=== PATIENT | female | born 1950 | race Caucasian/White ===

== ENCOUNTER → 2016-11-22 10:51 | Outpatient (CLI) | payer MEDICARE | END | disposition home or self-care (01) | LOC: D.MAMMO 08:15 | DX: Z12.31 Encounter for screening mammogram for malignant neoplasm of breast (principal) ==

== ENCOUNTER 2018-03-08 09:15 | Emergency (ER) | payer MEDICARE ==
[~2018-03-08] VITALS: Ht 160 cm; Wt 113.6 kg
[2018-03-08 09:23] VITALS: Ht 160 cm; Wt 113.6 kg
[2018-03-08] MEDS ORDERED: K-TAB10 MEQ PO (09:24)
[2018-03-08] MEDS ORDERED: MOBIC7.5 MG PO (09:25)
[2018-03-08] MEDS ORDERED: ZESTRIL40 MG PO (09:25)
[2018-03-08] MEDS ORDERED: PROZAC10 MG PO (09:25)
[2018-03-08] MEDS ORDERED: NORVASC10 MG PO (09:25)
[2018-03-08] MEDS ORDERED: FUROSEMIDE40 MG PO (09:26)
[2018-03-08] MEDS ORDERED: CYCLOBENZAPRINE10 MG PO (10:32)
[2018-03-08] MEDS ORDERED: ACETAMINOPHEN500 M1 PO (10:32)
[2018-03-08] MEDS ORDERED: MEDROL DOSE PACK4 MG PO (10:32)
[2018-03-08 11:04] VITALS: BP 138/76
== END 2018-03-08 11:05 | disposition home or self-care (01) ==
LOC: D.ER 09:15
DX: M25.561 Pain in right knee (principal); M17.11 Unilateral primary osteoarthritis, right knee; I10 Essential (primary) hypertension

== ENCOUNTER → 2018-03-27 17:17 | Outpatient (CLI) | payer MEDICARE ==
[2018-03-08 09:23] VITALS: BMI 44.3
[~2018-03-27 17:17] MED LIST: ACETAMINOPHEN500 M1 PO; CYCLOBENZAPRINE10 MG PO; FUROSEMIDE40 MG PO; K-TAB10 MEQ PO; MEDROL DOSE PACK4 MG PO; MOBIC7.5 MG PO; NORVASC10 MG PO; PROZAC10 MG PO; ZESTRIL40 MG PO
== END | disposition home or self-care (01) ==
LOC: D.LABREF 17:17
DX: M17.11 Unilateral primary osteoarthritis, right knee (principal); Z11.8 Encounter for screening for other infectious and parasitic diseases

== ENCOUNTER 2018-04-18 11:47 | Inpatient (IN) | payer MEDICARE ==
[~2018-04-18] VITALS: Ht 160 cm; Wt 115.0 kg
--- NOTE | ~2018-04-18 | OP ---
PATIENT NAME: GARRET KHANNA MEDICAL RECORD: [id number] :46 LOCATION:[facility].2222 ADMISSION DATE:04/29/18 SURGEON: PATRICK LANG DO DATE OF OPERATION: 04/29/2018 PROCEDURE PERFORMED: Right total knee arthroplasty. PREOPERATIVE DIAGNOSIS: Severe end-stage right knee osteoarthritis. POSTOPERATIVE DIAGNOSIS: Severe end-stage right knee osteoarthritis. INDICATIONS: Ms. Khanna is a 67-year-old female who presented to my office with right knee pain. She had x-rays done in the ER, it was very painful. She had a large loose body in the anterior portion of the knee just posterior to the patellar tendon. She also had severe arthritis. Her x-rays were nonweightbearing and indicated even showed that she was gctu-bf-[id number] even not bearing weight. She tried all conservative measures and tired of dealing with the pain. It was affecting her activities of daily living. Once that was established, I informed her that she tried everything besides surgery, we could do a total knee replacement, but there were risks with it. She is slightly overweight and there was increased risk for infection. There is also risk for bleeding, damage to nerves and vessels, need for further surgery, fracture. She is okay with all those risks, even blood clots and , and she consented to the procedure. SURGEON: Patrick Lang DO DESCRIPTION OF PROCEDURE: The patient received a block by anesthesia in the preoperative area and taken to the operative suite, laid in the supine position. I was assisted by Akhil Negrete, Advanced Nurse Practitioner. He helped me close and held retractors throughout the procedure. This could not have been performed without his assistance. Once the patient was intubated and sedated, she was given 2 grams of Ancef and 80 mg of gentamicin preoperatively. The right lower extremity was prepped and draped in sterile fashion. Timeout was performed, everyone was in agreement of correct side, site and patient. The patient received a gram of TXA prior to incision. The incision was then marked out of the anterior knee and then covered with Ioban. A #10 blade scalpel was then used to go down to the knee capsule itself and it was cleaned off. A fresh 10 blade was used to do a medial parapatellar approach. Any bleeding was coagulated with the Aquamantys throughout the procedure. The patella was then everted. Some of the fat pad was removed and that large loose body was removed as well. The patella was everted and milled down to fit the prosthesis. The knee was then flexed up. The femoral canal was entered and the distal femur was cut through the distal femur guide. The tibia was then cut as well as the guide was put in and the menisci were removed and any other loose bodies were removed at that time. The posterior capsule as well as the lateral and medial side of the knee was coagulated with the Aquamantys at that time to catch any bleeders. Once that was done, the extension block was attempted to be put in and was tight medially. A medial release was done on the MCL, superficial and deep fibers. Once that was performed, the extension block fit very well and the knee was flexed and femur was measured to be 62.5. A 4-in-1 cutting block was placed on the femur and this was done with 3 degrees of external rotation. This was then cut and after an darline wing was placed to ensure there was no notching on the anterior femur. The bone was removed from the cuts and then a tibial was floated in, the knee was ranged, and the rotation was marked. After that was OPERATIVE REPORT [id number] GARRET KHANNA done, the patella was drilled and so were the lug holes for the femur. The trial on the femur was removed and had been placed and the tibia was measured to be 71. This was put in and placed in a long stem tibia with cruciate tibia was put in 71, cruciate tibia with an 80 fin stem was drilled and punched. Then, cement was then mixed and placed on the component and in the tibia. This was impacted in place. Excess cement was removed and then the femur was placed and impacted into place. A 10 poly was placed in between and the patient was placed in extension and the cement was placed in the patella after it was cleaned with curette and irrigation and then the patellar implant was put in the 3 peg holes and a patellar squeezer was put in place and held until the cement dried. Once cement dried, the excess cement was removed prior to that. Once the cement dried, the knee was ranged and put at 12 and a 14 poly in, 14 poly fit very well. There was good medial and lateral stability in flexion and extension and then a 12 E-poly anterior stabilized and the implant was placed. The locking mechanism was then put in. This knee was then thoroughly irrigated and A Surgicel beads as well as tobramycin and vancomycin powder placed into the capsule and the capsule was closed with #2 Ethibond in jhnazo-im-gbehv fashion. The capsule was then irrigated and tobramycin and vancomycin powder placed on it and then the skin was closed with 2-0 Vicryl in an interrupted fashion and a ZipLine was placed on the Adaptic, 4 x 4s, ABD, Webril, Shaji wrap, and a NASRIN hose stocking was placed up to the knee for dressing. The patient was awakened and taken to recovery in stable condition. Blood loss was approximately 200 mL. COMPLICATIONS: None. TRANSINT:[id number] Voice Confirmation ID: [id number] DOCUMENT ID: [id number] PATRICK LANG DO CC: KIMMY GARCES MD [id number] DICTATION DATE: 04/29/18 1314 CONSULTING NETWORKING ENGINEER: 04/29/18 1447 ADM IN [facility] [address] [id number]
[2018-04-23 13:04] LABS: BASOPHILS 0.3 % (0-2); EOSINOPHILS 3.2 % (0-7); HEMATOCRIT 40.5 % (36.0-48.0); HEMOGLOBIN 13.4 g/dL (12-16); IMMATURE GRANULOCYTES 0.1 % (0-5); LYMPHOCYTES 28.3 % (15-50); MCH 28.5 pg (26.0-34.0); MCHC 33.1 g/dL (31.0-37.0); MEAN PLATELET VOLUME 9.7 fL (7.4-10.4); MONOCYTES 5.8 % (2-11); NEUTROPHILS 62.3 % (40-80); PLATELET COUNT 261 10x3/uL (130-400); RBC 4.71 10x6/uL (4.00-5.40); WBC 7.3 10x3/uL (4.8-10.8)
[2018-04-23 13:06] LABS: APPEARANCE CLEAR (CLEAR); BILIRUBIN NEGATIVE (NEGATIVE); COLOR YELLOW (YELLOW); GLUCOSE NEGATIVE (NEGATIVE); KETONE NEGATIVE (NEGATIVE); NITRITE NEGATIVE (NEGATIVE); PROTEIN NEGATIVE (NEGATIVE); SPECIFIC GRAVITY 1.015 (1.005-1.020); UROBILINOGEN NORMAL (NORMAL)
[2018-04-23 13:12] LABS: CALC OSMOLALITY 284 mosm/kg (275-300); CARBON DIOXIDE 27.3 mmol/L (21.0-32.0); CHLORIDE - SERUM 105 mmol/L (98-107); CREATININE - SERUM 0.6 mg/dL (0.6-1.3); GLUCOSE 109 mg/dL (74-106); POTASSIUM - SERUM 4.2 mmol/L (3.5-5.1); SODIUM 142 mmol/L (136-145); UREA NITROGEN 14 mg/dL (7-18); eGFR NON AFRICAN AMERICAN > 90 mL/min (90-120)
[2018-04-23 13:13] LABS: APTT 33.6 SECONDS (22.8-39.4); INR 0.96 (0.85-1.17); PROTIME 12.3 SECONDS (11.6-15.0)
[2018-04-29 09:00] VITALS: BP 166/73; BMI 44.9
--- NOTE | 2018-04-29 11:35 | NUR ---
PLASMA BLADE SET AT 6/8 BOVIE PAD RIGHT FLANK [id number] 09/06/2019
[2018-04-29 13:59] VITALS: BP 117/54
[2018-04-29] MEDS ORDERED: ULTRAM50 MG PO (14:20)
[2018-04-29] MEDS ORDERED: VISTARIL50 MG PO (14:20)
[2018-04-29] MEDS ORDERED: ELIQUIS2.5 MG PO (14:21)
[2018-04-29] MEDS ORDERED: DILAUDID4 MG PO (14:22)
[2018-04-29 17:24] VITALS: BP 115/57
[2018-04-29 17:46] VITALS: Ht 160 cm; Wt 115.0 kg
--- NOTE | 2018-04-29 20:00 | NUR ---
ASSESSMENT PER FLOWSHEET. DRSG TO RT KNEE C/D/I. CPM PLACED TO RT LEG. IV PATENT LEFT FOREARM OF 1/2NS AT 50CC'S/HR SITE CLEAR. POST MAT ON BED WITH ALARMS SET. SCD'S APPLIED TO BILAT. LEGS.YELLOW SAFETY MEASURES IN USE. VOIDS ON BEDPAN.
--- NOTE | 2018-04-29 21:00 | NUR ---
MEDS GIVEN PER MAR.
[2018-04-29 21:09] VITALS: BP 123/48
--- NOTE | 2018-04-29 22:05 | NUR ---
CPM OFF PLACED ON BEDPAN TO VOID.
--- NOTE | 2018-04-30 00:09 | NUR ---
EYES CLOSED RESPIRATIONS WITH EASE AND UNLABORED.
[2018-04-30 01:03] VITALS: BP 124/55
[2018-04-30 04:48] VITALS: BP 142/58
[2018-04-30 05:26] LABS: HEMATOCRIT 34.4 % (36.0-48.0); HEMOGLOBIN 11.2 g/dL (12-16); MCH 28.2 pg (26.0-34.0); MCHC 32.6 g/dL (31.0-37.0); MCV 86.6 fL (80.0-100.0); MEAN PLATELET VOLUME 9.7 fL (7.4-10.4); RBC 3.97 10x6/uL (4.00-5.40); RDW 15.1 % (11.5-14.5); WBC 13.4 10x3/uL (4.8-10.8)
--- NOTE | 2018-04-30 05:39 | NUR ---
VOIDS ON BEDPAN DENIES NEEDS RESING QUIETLY
--- NOTE | 2018-04-30 11:38 | NUR ---
PT STATED PAIN IS STILL BETWEEN 7 AND 8. PT IS YESSY MOFFETT IN CHAIR AT [facility], PT MARIELLAS CHERELLE DILAUDID AND TORADOL, WILL ADMINISTER TRAMADOL ORDERED PRN. PT TO SIT UP UNTIL AFTER LUNCH, STATED SHE FEELS LIKE SHE MA HAVE DONE TOO MUCH TOO SOON. CONTINUE WITH PLAN OF CARE
[2018-04-30 13:56] VITALS: BP 135/47
--- NOTE | 2018-04-30 16:26 | MORECARE ---
CASE MANAGEMENT DISCHARGE SUMMARY PATIENT: GARRET MACARIO SILVESTRE UNIT: [id number] ADM DATE: 04/29/18 AGE: 67 : 48 SEX: F ROOM/BED: D.2222 AUTHOR: MAUDE BLAKELY PHYSICIAN: REFERRING PHYSICIAN: KITTY LANG DO DATE OF SERVICE: 04/30/18 Discharge Plan Patient Name: GARRET MACARIO [facility] : 1950 Planned Disposition: Home Anticipated Discharge Date: Discharge Date: Expected LOS: Initial Reviewer: [email or web address] Initial Review Date: 04/30/2018 Generated: 04/30/18 5:26 pm Patient Name: GARRET MACARIO Page 35684 at 1626 All edits/amendments must be made on the electronic document DICTATION DATE: 04/30/18 1625 FOOTWEAR SALES LEADER: SANTOSH 04/30/185 RPT#: [id number] DC DATE: STATUS: ADM IN [facility] [address] [place] [address] END OF REPORT
--- NOTE | 2018-04-30 16:35 | MORECARE ---
CASE MANAGEMENT DISCHARGE SUMMARY PATIENT: GARRET MACARIO UNIT: [id number] ADM DATE: 04/29/18 AGE: 67 : 48 SEX: F ROOM/BED: D.2222 AUTHOR: ZORA,DOC PHYSICIAN: REFERRING PHYSICIAN: KITTY LANG DO DATE OF SERVICE: 04/30/18 Discharge Plan Patient Name: GARRET MACARIO Facility: [facility]:[place] : 1950 Planned Disposition: Home Anticipated Discharge Date: Discharge Date: Expected LOS: Initial Reviewer: [email or web address] Initial Review Date: 04/30/2018 Generated: 04/30/18 5:35 pm Comments DCP- Discharge Planning Updated by [email or web address]: Danielle Capps on 04/30/18 3:[address] Patient Name: GARRET MACARIO Admission Status: Elective Accout number: [id number] Admission Date: 04-29-2018 : 1950 Admission Diagnosis: Attending: KITTY LANG Current LOS: 1 Anticipated DC Date: Planned Disposition: Home Primary Insurance: [employer] ADV Discharge Planning Comments: CM met with patient to discuss discharge planning/needs, she is alone in the room. She states she has been staying at her daughter's home with her daughter and 2 adult grand children, She states she uses a cane or walker for ambulation, otherwise is independent with her ADL's. States she has already had her DME delivered (has BSC, CPM and walker in room and ice machine at the home) from [employer] (ordered from Dr. Lang's office). She states she does not think Dr. Lang had wanted her to start on her OP PT yet, but when he does she would like to use [facility]. I will check with her doctor tomorrow on when to get this started. CM will continue to follow and assist with discharge planning/needs. Automotive Electrical Fitter: Danielle Capps DCPIA - Discharge Planning Initial Assessment Updated by [email or web address]: Danielle Capps on 04/30/18 4:27 pm * Is the patient Alert and Oriented? Yes * How many steps to enter\exit or inside your home? 4/0 * PCP Dr. Luna * Pharmacy [facility] [address] * Preadmission Environment Home with Family * ADLs Partial Dependent * Partial ADLs (Assistance needed) Ambulation * Equipment Bedside Commode Cane Other Walker * Other Equipment Rollator walker CPM machine Ice machine * List name and contact numbers for known caregivers / representatives who currently or will assist patient after discharge: Ceci Mercado - DTR - [phone] * Verbal permission to speak to the caregivers and representatives has been obtained from the patient. Yes * Community resources currently utilized None * Additional services required to return to the preadmission environment? Yes * Can the patient safely return to the preadmission environment? Yes * Has this patient been hospitalized within the prior 30 days at any hospital? No Last DP export: 04/30/18 3:26 p Patient Name: GARRET MACARIO Page [id number] at 1635 All edits/amendments must be made on the electronic document DICTATION DATE: 04/30/181634 CALL CENTER DIRECTOR: SANTOSH 04/30/18 1635 RPT#: [id number] DC DATE: STATUS: ADM IN [facility] [address] [place] [address] END OF REPORT
--- NOTE | 2018-04-30 17:00 | NUR ---
PT IS RESTING IN BED WITH EYES OPEN. RESPIRATIONS ARE EVEN AND UNLABORED. SCD ON LEFT LOWER EXTREMITY. DRESSING TO RIGHT LOWER EXTREMITY IS C/D/I. PT REPORTS PAIN 7/10 BUT DENIES NEEDS AT THIS TIME. PT REPORTS THAT SHE HAS PASSED FLATUS SINCE THE PROCEDURE BUT DENIES A BM. PT DENIES PRESENCE OF N/V AT THIS TIME. BED IS IN THE LOWEST POSITION. CALL LIGHT AND BEDSIDE TABLE ARE WITHIN REACH. WILL NOTIFY NURSE OF PAIN LEVEL.
[2018-04-30 17:12] VITALS: BP 122/50
--- NOTE | 2018-04-30 18:42 | NUR ---
WHILE PLACING CPM MACHINE ON PT, WELDING MACHINE SETTER SAW A BAG OF MEDS UNDER PT LEG, ADVISED PT SHE CAAN NOT SELF MEDICATE WHILE ERE, DAUGHTER STATED SHE IS TAKING MEDS HOME WITH HER TONIGHT, NO OTHER NEEDS CONTINUE WITH PLAN OF CARE
--- NOTE | 2018-04-30 20:00 | NUR ---
ASSESSSMENT PER FLOWSHEET.DENICE WRAP DRESSING TO RT KNEE C/D/I. PATIENT PLACED IN CPM MACHINE. IV LEFT FOREARM SALINE LOCKED. DENIES NEEDS.
--- NOTE | 2018-04-30 21:00 | NUR ---
MEDS GIVEN PER MAR, UP WITH HELP AND USE OF WALKER TO BSC. VOIDS WELL.
[2018-04-30 21:07] VITALS: BP 147/53
--- NOTE | 2018-05-01 00:48 | NUR ---
C/O INCISIONAL PAIN ULTRAM TAB ONE PO GIVEN FOR PAIN CONTROL.
--- NOTE | 2018-05-01 03:00 | NUR ---
UP TO BSC VOIDS WELL ASSISTED BACK TO BED SR UP X2 CALL LIGHT WITHIN REACH.
[2018-05-01 04:00] VITALS: BP 137/47
--- NOTE | 2018-05-01 04:42 | NUR ---
AWAKE C/O PAIN INCISIONAL AREA RATES PAIN LEVEL #8 TORADOL 15MG IVPS GIVEN FOR PAIN CONTROL.
[2018-05-01 04:52] LABS: BASOPHILS 0.1 % (0-2); CALC OSMOLALITY 282 mosm/kg (275-300); CALCIUM 8.2 mg/dL (8.5-10.1); CARBON DIOXIDE 26.6 mmol/L (21.0-32.0); CHLORIDE - SERUM 105 mmol/L (98-107); CREATININE - SERUM 0.6 mg/dL (0.6-1.3); EOSINOPHILS 0.7 % (0-7); GLUCOSE 154 mg/dL (74-106); HEMATOCRIT 32.2 % (36.0-48.0); HEMOGLOBIN 10.5 g/dL (12-16); IMMATURE GRANULOCYTES 0.3 % (0-5); LYMPHOCYTES 23.9 % (15-50); MCH 27.9 pg (26.0-34.0); MCHC 32.6 g/dL (31.0-37.0); MCV 85.4 fL (80.0-100.0); MONOCYTES 9.9 % (2-11); NEUTROPHILS 65.1 % (40-80); PLATELET COUNT 198 10x3/uL (130-400); POTASSIUM - SERUM 3.6 mmol/L (3.5-5.1); RBC 3.77 10x6/uL (4.00-5.40); RDW 15.2 % (11.5-14.5); SODIUM 140 mmol/L (136-145); UREA NITROGEN 15 mg/dL (7-18); eGFR NON AFRICAN AMERICAN > 90 mL/min (90-120)
[2018-05-01 05:01] LABS: WBC 9.9 10x3/uL (4.8-10.8)
--- NOTE | 2018-05-01 06:00 | NUR ---
RESTING QUIETLY DENIES NEEDS.
[2018-05-01 08:38] VITALS: BP 140/59
--- NOTE | 2018-05-01 08:44 | NUR ---
PT SITTING UP IN BED ON CPM MACHINE. NO S/S OF ACUTE DISTRESS. CL IN PLACE.
--- NOTE | 2018-05-01 11:46 | MORECARE ---
CASE MANAGEMENT DISCHARGE SUMMARY PATIENT: GARRET MACARIO UNIT: [id number] ADM DATE: 04/29/18 AGE: 67 : 48 SEX: F ROOM/BED: D.2222 AUTHOR: ZORADOC PHYSICIAN: REFERRING PHYSICIAN: KITTY LANG DO DATE OF SERVICE: 05/01/18 Discharge Plan Patient Name: GARRET MACARIO Facility: [facility]:[place] : 1950 Planned Disposition: Home Anticipated Discharge Date: Discharge Date: Expected LOS: Initial Reviewer: [email or web address] Initial Review Date: 04/30/2018 Generated: 05/01/18 12:46 pm Comments DCP- Discharge Planning Updated by [email or web address]: Danielle Capps on 04/30/18 3:[address] Patient Name: GARRET MACARIO Admission Status: Elective Accout number: [id number] Admission Date: 04-29-2018 : 1950 Admission Diagnosis: Attending: KITTY LANG Current LOS: 1 Anticipated DC Date: Planned Disposition: Home Primary Insurance: [employer] ADV Discharge Planning Comments: CM met with patient to discuss discharge planning/needs, she is alone in the room. She states she has been staying at her daughter's home with her daughter and 2 adult grand children, She states she uses a cane or walker for ambulation, otherwise is independent with her ADL's. States she has already had her DME delivered (has BSC, CPM and walker in room and ice machine at the home) from [employer] (ordered from Dr. Lang's office). She states she does not think Dr. Lang had wanted her to start on her OP PT yet, but when he does she would like to use [facility]. I will check with her doctor tomorrow on when to get this started. CM will continue to follow and assist with discharge planning/needs. Zoology Teacher: Danielle Capps DCPIA - Discharge Planning Initial Assessment Updated by [email or web address]: Danielle Capps on 04/30/18 4:27 pm * Is the patient Alert and Oriented? Yes * How many steps to enter\exit or inside your home? 4/0 * PCP Dr. Luna * Pharmacy [facility] [address] * Preadmission Environment Home with Family * ADLs Partial Dependent * Partial ADLs (Assistance needed) Ambulation * Equipment Bedside Commode Cane Other Walker * Other Equipment Rollator walker CPM machine Ice machine * List name and contact numbers for known caregivers / representatives who currently or will assist patient after discharge: Ceci Mercado - DTR - [phone] * Verbal permission to speak to the caregivers and representatives has been obtained from the patient. Yes * Community resources currently utilized None * Additional services required to return to the preadmission environment? Yes * Can the patient safely return to the preadmission environment? Yes * Has this patient been hospitalized within the prior 30 days at any hospital? No External Providers External Provider: [facility] Next Contact Date: Service Request Date: Service Type: Resolution: Reviewer: Comments: Last DP export: 04/30/18 3:35 p Patient Name: GARRET MACARIO Page 31380 at 1146 All edits/amendments must be made on the electronic document DICTATION DATE: 05/01/18 1145 JAVA SOFTWARE ARCHITECT: SANTOSH 05/01/18 1145 RPT#: [id number] DC DATE: STATUS: ADM IN [facility] [address] [place] [address] END OF REPORT
--- NOTE | 2018-05-01 11:54 | MORECARE ---
CASE MANAGEMENT DISCHARGE SUMMARY PATIENT: GARRET MACARIO UNIT: [id number] ADM DATE: 04/29/18 AGE: 67 : 48 SEX: F ROOM/BED: D.2222 AUTHOR: ZORA,DOC PHYSICIAN: REFERRING PHYSICIAN: KITTY LANG DO DATE OF SERVICE: 05/01/18 Discharge Plan Patient Name: GARRET MACARIO Facility: [facility]:[place] : 1950 Planned Disposition: Home Anticipated Discharge Date: Discharge Date: Expected LOS: Initial Reviewer: [id number] Initial Review Date: 04/30/2018 Generated: 05/01/18 12:54 pm Comments DCP- Discharge Planning Updated by [email or web address]: Danielle Capps on 05/01/18 10:[address] Spoke with patient and she is in agreement to [facility] for PT until stronger. ADRIANO for [facility] signed. I called Mayra at [facility], they will see her Saturday and PT will start on Saturday. Patient and daughter informed. She will be staying with daughter at [address] [place] [address] and Mayra informed at [facility]. CM will continue to follow and assist with discharge planning/needs. DCP- Discharge Planning Updated by [email or web address]: Danielle Capps on 04/30/18 3:[address] Patient Name: GARRET MACARIO Admission Status: Elective Accout number: [id number] Admission Date: 04-29-2018 : 1950 Admission Diagnosis: Attending: KITTY LANG Current LOS: 1 Anticipated DC Date: Planned Disposition: Home Primary Insurance: [email or web address] ADV Discharge Planning Comments: CM met with patient to discuss discharge planning/needs, she is alone in the room. She states she has been staying at her daughter's home with her daughter and 2 adult grand children, She states she uses a cane or walker for ambulation, otherwise is independent with her ADL's. States she has already had her DME delivered (has BSC, CPM and walker in room and ice machine at the home) from [employer] (ordered from Dr. Lang's office). She states she does not think Dr. Lang had wanted her to start on her OP PT yet, but when he does she would like to use [facility]. I will check with her doctor tomorrow on when to get this started. CM will continue to follow and assist with discharge planning/needs. Stamping Machine Operator: Danielle Capps DCPIA - Discharge Planning Initial Assessment Updated by [id number]: Danielle Capps on 04/30/18 4:27 pm * Is the patient Alert and Oriented? Yes * How many steps to enter\exit or inside your home? 4/0 * PCP Dr. Luna * Pharmacy [facility] on [address] * Preadmission Environment Home with Family * ADLs Partial Dependent * Partial ADLs (Assistance needed) Ambulation * Equipment Bedside Commode Cane Other Walker * Other Equipment Rollator walker CPM machine Ice machine * List name and contact numbers for known caregivers / representatives who currently or will assist patient after discharge: Ceci Mercado - DTR - [phone] * Verbal permission to speak to the caregivers and representatives has been obtained from the patient. Yes * Community resources currently utilized None * Additional services required to return to the preadmission environment? Yes * Can the patient safely return to the preadmission environment? Yes * Has this patient been hospitalized within the prior 30 days at any hospital? No Last DP export: 05/01/18 10:46 a Patient Name: GARRET MACARIO Page 40893 at 1154 All edits/amendments must be made on the electronic document DICTATION DATE: 05/01/18 115 WEB ANALYTICS SPECIALIST: SANTOSH 05/01/18 1154 RPT#: [id number] SD DATE: STATUS: ADM IN [facility] [address] [place] [address] END OF REPORT
[2018-05-01 16:30] VITALS: BP 110/56
--- NOTE | 2018-05-01 18:20 | NUR ---
ASSISTED PT TO BR WITH RW. PT DID WELL. NO S/S OF ACUTE DISTRESS. CL IN PLACE.
--- NOTE | 2018-05-01 19:00 | NUR ---
BEDSIDE REPORT RECEIVED AND CARE OF PT ASSUMED. PT RESTING IN SUPINE POSITION. DRESSING ON RIGHT LEG CLEAN AND DRY. IV IN LEFT FA SALINE LOCKED. WILL MONITOR FOR NEEDS.
[2018-05-01 20:00] VITALS: BP 162/62
--- NOTE | 2018-05-01 21:31 | NUR ---
HS MEDICATIONS GIVEN TO INCLUDE TORADOL IVP AND VISTARIL PO FOR PAIN. WILL MONITOR FOR EFFECTIVENESS. CALL LIGHT WITHIN REACH.
[2018-05-02] VITALS: BP 146/69
--- NOTE | 2018-05-02 07:45 | NUR ---
PT LAYING IN BED, RESTING WITH EYES OPEN. CPM ON PATIENT AT THIS TIME, TO COME OFF NO LATER THEN 1015. PT IS POST-OP DAY 3 OF A RIGHT TOTAL KNEE, DRESSING TO RIGHT KNEE, CDI. RESPIRATIONS EVEN AND UNLABORED, NO S/S OF DISTRESS NOTED. BED LOW AND LOCKED, SR UP X2, CL IN EASY REACH. DENIES NEEDS. WILL CONTINUE TO MONITOR.
--- NOTE | 2018-05-02 08:54 | MORECARE ---
CASE MANAGEMENT DISCHARGE SUMMARY PATIENT: GARRET MACARIO UNIT: [id number] ADM DATE: 04/29/18 AGE: 67 : 48 SEX: F ROOM/BED: D.2222 AUTHOR: ZORA,DOC PHYSICIAN: REFERRING PHYSICIAN: KITTY LANG DO DATE OF SERVICE: 05/02/18 Discharge Plan Patient Name: GARRET MACARIO Facility: [facility]:[place] : 1950 Planned Disposition: Home Anticipated Discharge Date: Discharge Date: Expected LOS: Initial Reviewer: [email or web address] Initial Review Date: 04/30/2018 Generated: 05/02/18 9:54 am Comments DCP- Discharge Planning Updated by [email or web address]: Danielle Capps on 05/01/18 10:[address] Spoke with patient and [facility]. ADRIANO for [facility] signed. I called Mayra at [facility], they will see her Saturday and PT will start on Saturday. Patient and daughter informed. She will be staying with daughter at [address] [place] [address] and Mayra informed at [facility]. CM will continue to follow and assist with discharge planning/needs. DCP- Discharge Planning Updated by [email or web address]: Danielle Capps on 04/30/18 3:[address] Patient Name: GARRET MACARIO Admission Status: Elective Accout number: [id number] Admission Date: 04-29-2018 : 1950 Admission Diagnosis: Attending: KITTY LANG Current LOS: 1 Anticipated DC Date: Planned Disposition: Home Primary Insurance: [employer] ADV Discharge Planning Comments: CM met with patient to discuss discharge planning/needs, she is alone in the room. She states she has been staying at her daughter's home with her daughter and 2 adult grand children, She states she uses a cane or walker for ambulation, otherwise is independent with her ADL's. States she has already had her DME delivered (has BSC, CPM and walker in room and ice machine at the home) from [employer] (ordered from Dr. Lang's office). She states she does not think Dr. Lang had wanted her to start on her OP PT yet, but when he does she would like to use [facility]. I will check with her doctor tomorrow on when to get this started. CM will continue to follow and assist with discharge planning/needs. Armor Senior Sergeant: Danielle Capps DCPIA - Discharge Planning Initial Assessment Updated by [email or web address]: Danielle Capps on 04/30/18 4:27 pm * Is the patient Alert and Oriented? Yes * How many steps to enter\exit or inside your home? 4/0 * PCP Dr. Luna * Pharmacy [facility] [address] * Preadmission Environment Home with Family * ADLs Partial Dependent * Partial ADLs (Assistance needed) Ambulation * Equipment Bedside Commode Cane Other Walker * Other Equipment Rollator walker CPM machine Ice machine * List name and contact numbers for known caregivers / representatives who currently or will assist patient after discharge: Ceci Mercado - DTR - [phone] * Verbal permission to speak to the caregivers and representatives has been obtained from the patient. Yes * Community resources currently utilized None * Additional services required to return to the preadmission environment? Yes * Can the patient safely return to the preadmission environment? Yes * Has this patient been hospitalized within the prior 30 days at any hospital? No Last DP export: 05/01/18 10:54 a Patient Name: GARRET MACARIO Page 20429 at 0854 All edits/amendments must be made on the electronic document DICTATION DATE: 05/02/18853 APPLICATION CHEMIST: SANTOSH 05/02/1854 RPT#: [id number] DC DATE: STATUS: ADM IN [facility] [address] [place] [address] END OF REPORT
--- NOTE | 2018-05-02 09:09 | MORECARE ---
CASE MANAGEMENT DISCHARGE SUMMARY PATIENT: GARRET MACARIO UNIT: [id number] ADM DATE: 04/29/18 AGE: 67 : 48 SEX: F ROOM/BED: D.2222 AUTHOR: ZORA,DOC PHYSICIAN: REFERRING PHYSICIAN: KITTY LANG DO DATE OF SERVICE: 05/02/18 Discharge Plan Patient Name: GARRET MACARIO Facility: [facility]:[place] : 1950 Planned Disposition: Home Anticipated Discharge Date: Discharge Date: Expected LOS: Initial Reviewer: [email or web address] Initial Review Date: 04/30/2018 Generated: 05/02/18 10:09 am Comments DCP- Discharge Planning Updated by [email or web address]: Danielle Capps on 05/02/18 8:[address] Received order for discharge. Spoke with Mayra at [facility] and DC orders faxed, they will see tomorrow and PT will begin on Saturday, patient informed. Patient in agreement to discharge home today with home health. Her daughter is picking her up today. States she has all of her DME she needs. CM will continue to follow and assist with discharge planning/needs. DCP- Discharge Planning Updated by [email or web address]: Danielle Jefry on 05/01/18 10:[address] Spoke with patient and she is in agreement to home health for PT until stronger. ADRIANO for [facility] signed. I called Mayra at [facility], they will see her Saturday and PT will start on Saturday. Patient and daughter informed. She will be staying with daughter at [address] [place] [address] and Mayra informed at [facility]. CM will continue to follow and assist with discharge planning/needs. DCP- Discharge Planning Updated by [email or web address]: Danielle Jefry on 04/30/18 3:[address] Patient Name: GARRET AMCARIO Admission Status: Elective Accout number: [id number] Admission Date: 04-29-2018 : 1950 Admission Diagnosis: Attending: KITTY LANG Current LOS: 1 Anticipated DC Date: Planned Disposition: Home Primary Insurance: [employer] ADV Discharge Planning Comments: CM met with patient to discuss discharge planning/needs, she is alone in the room. She states she has been staying at her daughter's home with her daughter and 2 adult grand children, She states she uses a cane or walker for ambulation, otherwise is independent with her ADL's. States she has already had her DME delivered (has BSC, CPM and walker in room and ice machine at the home) from [facility] (ordered from Dr. Lang's office). She states she does not think Dr. Lang had wanted her to start on her OP PT yet, but when he does she would like to use [facility]. I will check with her doctor tomorrow on when to get this started. CM will continue to follow and assist with discharge planning/needs. Hatchery Attendant: Danielle Capps DCPIA - Discharge Planning Initial Assessment Updated by [id number]: Danielle Capps on 04/30/18 4:27 pm * Is the patient Alert and Oriented? Yes * How many steps to enter\exit or inside your home? 4/0 * PCP Dr. Luna * Pharmacy [facility] on [address] * Preadmission Environment Home with Family * ADLs Partial Dependent * Partial ADLs (Assistance needed) Ambulation * Equipment Bedside Commode Cane Other Walker * Other Equipment Rollator walker CPM machine Ice machine * List name and contact numbers for known caregivers / representatives who currently or will assist patient after discharge: Ceci Mercado [facility] - [phone] * Verbal permission to speak to the caregivers and representatives has been obtained from the patient. Yes * Community resources currently utilized None * Additional services required to return to the preadmission environment? Yes * Can the patient safely return to the preadmission environment? Yes * Has this patient been hospitalized within the prior 30 days at any hospital? No Coverage Notice Reviewer: [id number] - Danielle Capps Notice Issued Date-Time: 05/02/2018 9:02 Notice Type: IM Discharge Notice Notice Delivered To: Patient Relationship to Patient: Self Kettleman Name: Delivery Method: HAND - Hand Delivered Candida Days: Prior Verbal Notification: Recipient Understood Notice: Yes Recipient Signature: Yes Med Rec Note Co-signed by Attending: Coverage Notice Comment: IMM explained, signed, given, copy placed in MR Last DP export: 05/02/18 7:54 a Patient Name: GARRET MACARIO Page [id number] at 0909 All edits/amendments must be made on the electronic document DICTATION DATE: 05/02/18907 ODD JOB LABORER: SANTOSH 05/02/18907 RPT#: [id number] DC DATE: STATUS: ADM IN [facility] [address] [place] [address] END OF REPORT
[2018-05-02 10:04] VITALS: BP 126/70
--- NOTE | 2018-05-02 13:04 | NUR ---
PT DISCHARGE INSTRUCTION GONE OVER WITH PT AND FAMILY, ALLOWED TIME FOR QUESTIONS, PT HAD NO QUESTIONS AND VERBALIZED UNDERSTANDING OF INSTRUCTIONS AND SIGNED. PT DISCHARGE EDUCATION PROVIDED UPON DISCHARGE. IV REMOVED, TIP INTACT. DENIES NEEDS. WISHES TO STAY AND EAT LUNCH BEFORE DISCHARGE. PT ESTIMATED DISCHARGE TIME AT 1330.
--- NOTE | 2018-05-02 16:56 | MORECARE ---
CASE MANAGEMENT DISCHARGE SUMMARY PATIENT: GARRET MACARIO UNIT: [id number] ADM DATE: 04/29/18 AGE: 67 : 48 SEX: F ROOM/BED: D.2222 AUTHOR: MAUDE BLAKELY PHYSICIAN: REFERRING PHYSICIAN: KITTY LANG DO DATE OF SERVICE: 05/02/18 Discharge Plan Patient Name: GARRET MACARIO Facility: [facility]:[place] : 1950 Planned Disposition: Home Anticipated Discharge Date: Discharge Date: 05/02/2018 Expected LOS: 0 Initial Reviewer: [email or web address] Initial Review Date: 04/30/2018 Generated: 05/02/18 5:56 pm Comments DCP- Discharge Planning Updated by [email or web address]: Danielle Capps on 05/02/18 8:[address] Received order for discharge. Spoke with Mayra at [facility] and DC orders faxed, they will see tomorrow and PT will begin on Saturday, patient informed. Patient in agreement to discharge home today with home health. Her daughter is picking her up today. States she has all of her DME she needs. CM will continue to follow and assist with discharge planning/needs. DCP- Discharge Planning Updated by [id number]: Danielle Jefry on 05/01/18 10:[address] Spoke with patient and she is in agreement to home health for PT until stronger. ADRIANO for [facility] signed. I called Mayra at [facility], they will see her Saturday and PT will start on Saturday. Patient and daughter informed. She will be staying with daughter at [address] [place] [address] and Mayra informed at [facility]. CM will continue to follow and assist with discharge planning/needs. DCP- Discharge Planning Updated by [id number]: Danielle Jefry on 04/30/18 3:[address] Patient Name: GARRET MACARIO Admission Status: Elective Accout number: [id number] Admission Date: 04-29-2018 : 1950 Admission Diagnosis: Attending: KITTY LANG Current LOS: 1 Anticipated DC Date: Planned Disposition: Home Primary Insurance: [employer] ADV Discharge Planning Comments: CM met with patient to discuss discharge planning/needs, she is alone in the room. She states she has been staying at her daughter's home with her daughter and 2 adult grand children, She states she uses a cane or walker for ambulation, otherwise is independent with her ADL's. States she has already had her DME delivered (has BSC, CPM and walker in room and ice machine at the home) from [employer] (ordered from Dr. Lang's office). She states she does not think Dr. Lang had wanted her to start on her OP PT yet, but when he does she would like to use [facility]. I will check with her doctor tomorrow on when to get this started. CM will continue to follow and assist with discharge planning/needs. Application Support Technician: Danielle Capps DCPIA - Discharge Planning Initial Assessment Updated by [email or web address]: Danielle Capps on 04/30/18 4:27 pm * Is the patient Alert and Oriented? Yes * How many steps to enter\exit or inside your home? 4/0 * PCP Dr. Luna * Pharmacy [facility] on [address] * Preadmission Environment Home with Family * ADLs Partial Dependent * Partial ADLs (Assistance needed) Ambulation * Equipment Bedside Commode Cane Other Walker * Other Equipment Rollator walker CPM machine Ice machine * List name and contact numbers for known caregivers / representatives who currently or will assist patient after discharge: Ceci Mercado [facility] - [phone] * Verbal permission to speak to the caregivers and representatives has been obtained from the patient. Yes * Community resources currently utilized None * Additional services required to return to the preadmission environment? Yes * Can the patient safely return to the preadmission environment? Yes * Has this patient been hospitalized within the prior 30 days at any hospital? No Coverage Notice Reviewer: [id number] - Danielle Capps Notice Issued Date-Time: 05/02/2018 9:02 Notice Type: IM Discharge Notice Notice Delivered To: Patient Relationship to Patient: Self Butadiene Convertor Operator Name: Delivery Method: HAND - Hand Delivered Candida Days: Prior Verbal Notification: Recipient Understood Notice: Yes Recipient Signature: Yes Med Rec Note Co-signed by Attending: Coverage Notice Comment: IMM explained, signed, given, copy placed in MR Last DP export: 05/02/18 8:09 a Patient Name: GARRET MACARIO Page [id number] at 1656 All edits/amendments must be made on the electronic document DICTATION DATE: 05/02/181655 CENTRIFUGAL WAX MOLDER: SANTOSH 05/02/181655 RPT#: [id number] DC DATE:05/02/18 STATUS: DIS IN [facility] [address] [place] [address] END OF REPORT
== END 2018-05-02 14:07 | disposition home health service (06) | DRG 470 ==
LOC: D.MS 04-29 08:00 → D.SDCHOLD 04-29 08:00 → D.MS 04-29 13:51
PROVIDERS: Internal Medicine Nephrology; ADMIT Orthopaedic Surgery
PROC: 0SRC0JZ Replacement of Right Knee Joint with Synthetic Substitute, Open Approach (ICD-10-PCS; principal; 2018-04-29 10:30)
DX: M16.11 Unilateral primary osteoarthritis, right hip (principal); D62 Acute posthemorrhagic anemia; I10 Essential (primary) hypertension

== ENCOUNTER 2018-12-23 10:00 | Outpatient (CLI) | payer MEDICARE ==
[2018-04-29 17:46] VITALS: BMI 44.9
[~2018-12-23 10:00] MED LIST changes: +DILAUDID4 MG PO; +ELIQUIS2.5 MG PO; +ULTRAM50 MG PO; +VISTARIL50 MG PO
== END 2018-12-23 10:30 | disposition home or self-care (01) ==
LOC: D.MAMMO 10:00
PROVIDERS: ATTEND Family Medicine
DX: Z12.31 Encounter for screening mammogram for malignant neoplasm of breast (principal)

== ENCOUNTER 2020-05-19 13:53 | Inpatient (IN) | payer MEDICARE ==
[~2020-05-19] VITALS: Ht 160 cm; Wt 122.7 kg
[2020-05-24] MEDS ORDERED: ZYLOPRIM100 MG PO (14:26)
[2020-05-24] MEDS ORDERED: COLCRYS0.6 MG PO (14:26)
[2020-05-24] MEDS ORDERED: LIPITOR10 MG PO (14:27)
[2020-05-24] MEDS ORDERED: PEPCID AC20 MG PO (14:28)
[2020-05-25 13:31] LABS: BILIRUBIN NEGATIVE (NEGATIVE); KETONE NEGATIVE (NEGATIVE); NITRITE NEGATIVE (NEGATIVE); SQUAMOUS EPITHELIAL 0-5 HPF (0-4); UROBILINOGEN NORMAL mg/dL (< 2); WHITE CELLS - URINE 0-5 HPF (0-4)
[2020-05-25 13:32] LABS: BACTERIA MODERATE HPF (NONE SEEN)
[2020-05-25 13:48] LABS: ANION GAP 9.9 mmol/L (8-16); CALCIUM 9.1 mg/dL (8.5-10.1); CARBON DIOXIDE 30.8 mmol/L (21.0-32.0); CREATININE - SERUM 0.9 mg/dL (0.6-1.3); POTASSIUM - SERUM 3.7 mmol/L (3.5-5.1)
[2020-05-25 13:52] LABS: BASOPHILS 0.4 % (0-2); EOSINOPHILS 3.6 % (0-7); HEMATOCRIT 39.6 % (36.0-48.0); IMMATURE GRANULOCYTES 0.1 % (0-5); LYMPHOCYTES 33.5 % (15-50); MCH 28.7 pg (26.0-34.0); MCHC 32.8 g/dL (31.0-37.0); MCV 87.4 fL (80.0-100.0); MEAN PLATELET VOLUME 9.6 fL (7.4-10.4); MONOCYTES 4.7 % (2-11); NEUTROPHIL ABS# 4.13 10x3/uL (1.56-6.13); NEUTROPHILS 57.7 % (40-80); RBC 4.53 10x6/uL (4.00-5.40); RDW 14.8 % (11.5-14.5); WBC 7.2 10x3/uL (4.8-10.8)
[2020-05-25 13:54] LABS: PLATELET COUNT 274 10x3/uL (130-400)
[2020-05-25 13:57] LABS: APTT 24.5 SECONDS (22.8-39.4); INR 1.02 (0.85-1.17); PROTIME 12.4 SECONDS (11.6-15.0)
[2020-05-31] VITALS (10 sets, daily range): BP systolic 96–149; BP diastolic 47–74; Ht 160 cm; Wt 122.7 kg
[2020-05-31 09:25] LABS: BILIRUBIN NEGATIVE (NEGATIVE); KETONE NEGATIVE (NEGATIVE); NITRITE NEGATIVE (NEGATIVE); UROBILINOGEN NORMAL mg/dL (< 2)
--- NOTE | 2020-05-31 12:02 | NUR ---
IN ROOM AT 1012. SPINAL COMPLETED IN OR AT 1025. PT OPERATIVE LEG CLEANSED WITH HIBECLENS AND ALCOHOL, DRIED WITH STERILE TOWEL, THEN WIPPED DOWN WITH ALCOHOL FROM THIGH TO TOES CIRCUMFERENTIALLY PRIOR TO PREP. RN IN STERILE ATTIRE FOR PREP. PREPPED FROM THIGH TO TOES CIRCUMFERENTIALLY WITH CHLORAPREP X2. PLASMA BLADE SET TO 6/8
--- NOTE | 2020-05-31 12:56 | NUR ---
PT RECEIVED FROM RECOVERY TO ROOM 1210 VIA BED WITH FAMILY AT SIDE. RESP EVEN AND UNLABORED. O2 @ 2L NC IN PLACE. PT DENIES PAIN AT THIS TIME. IV TO RIGHT HAND WITH 1/2 NS @ 100ML/HR INFUSING VIA PUMP. SITE WITHOUT REDNESS OR EDEMA. DRESSING C/D/I TO LEFT KNEE. SCD AND NASRIN HOSE ON BILATERALLY. PPPX4. ORIENTED TO CL, BED CONTROLS AND ROOM. DENIES WISHES FOR LUNCH TRAY AT THIS TIME. CL WITHIN REACH. ENCOURAGED TO CALL WITH NEEDS. CONTINUE POC
--- NOTE | 2020-05-31 17:51 | OP ---
PATIENT NAME: GARRET KHANNA MEDICAL RECORD: [id number] :[birth year] LOCATION:D. D.1210 ADMISSION DATE:05/31/20 SURGEON: PATRICK LANG DO DATE OF OPERATION: 05/31/2020 PROCEDURE PERFORMED: Left total knee arthroplasty. PREOPERATIVE DIAGNOSIS: Left knee osteoarthritis. POSTOPERATIVE DIAGNOSIS: Left knee osteoarthritis. INDICATIONS: Ms. Khanna is a 69-year-old female who has had left knee pain for quite some time. She has had the right one replaced and was ready for the left one. She was aware of the risk of this including infection, bleeding, damage to nerves or vessels, need for further surgery, continued pain, failure of implants, need for blood products, need for further surgery, blood loss, failure of implant, fracture, blood clots and even , arthrofibrosis of the knees also and signed the consent. SURGEON: Patrick Lang DO DESCRIPTION OF PROCEDURE: The patient received a spinal by anesthesia. She was taken to the operative suite, laid in the supine position, given light sedation and the left lower extremity was then prepped and draped in the sterile fashion. She was given 2 grams of Ancef, 80 mg of gentamicin and a gram of TXA. The left lower extremity was then prepped and draped in sterile fashion. A timeout was performed, everyone was in agreeance with the correct side, site, patient and procedure. I then began by marking out the incision on the anterior knee, covered in Ioban. I then made an incision down through the skin, to the knee joint capsule. We used a fresh 10-blade to the medial parapatellar approach. I then everted the patella, removed part of the fat pad. I removed a large loose body in the anterior knee. I then milled down the patella and then exposed the femur, drilled a hole in the femoral canal after removing the ACL and more loose bodies in the notch. I then cut the distal femur off the distal intramedullary guide. I then removed the guide, exposed the proximal tibia, cut it and removed the bone and menisci with the knee in extension using a laminar insurance account manager and [employer]-[place] for exposure. Again, more loose bodies were removed from the posterior knee at that time. The 10 extension block fit very easily and then flexed the knee, upsized the femur to be a 9. I used a 4-in-1 cutting block and using an darline wing to make sure there was no notching. I then cut the distal femur through a 4-in-1 cutting block and then removed it, sized the tibia to be an E, pinned it into place and then put the trial femur on and 14-poly and it fit very well and I then drilled the lug holes and also the holes for the patella through the guide. I then exposed the tibia, reamed and punched, then put extra holes in the tibia for cement, mixed the cement and irrigated and then put the cement in the tibia and on the implant, impacted into place, removed excess cement and impacted the femur on, put a 14-poly in between, brought the knee to extension and irrigated out the patella, put cement in the patellar holes and on the patella and squeezed it into place, removed excess cement from it and then put in the 10% povidone iodine and 500 mL of normal saline solution and let it sit for a few minutes and irrigated out, injected the joint cocktail and then sized, tried a 16 poly. Once the cement had dried the 16 fit very well. I then inserted 16 medial congruent bearing in the knee and locked it in place. The knee ranged very well. I then irrigated one more time, put in Rick and vancomycin and tobramycin powder, closed the capsule with #1 Vicryl OPERATIVE REPORT [id number] GARRET KHANNA in a [id number] fashion and Sergio Doan finished that and ran a Quill stitch Stratafix on the capsule. I then closed the skin with 2-0 Vicryl in inverted interrupted fashion and placed a ZipLine, Adaptic, 4 x 4s, ABD, cast padding and Shaji wrap on the knee. She was awakened and taken to recovery in stable condition. Blood loss was approximately 250 mL. COMPLICATIONS: None. TRANSINT:[id number] Voice Confirmation ID: [id number] DOCUMENT ID: [id number] PATRICK LANG DO at 1755 CC: [id number] DICTATION DATE: 05/31/20 1152 SHAREPOINT APPLICATION ARCHITECT: 05/31/20 1608 ADM IN [facility] [address] [place] [address]
--- NOTE | 2020-05-31 20:00 | NUR ---
ALERT RESTING IN BED CPM IN USE REPORT SOME PAIN TO KNEE, SEE SHIFT ASSESSMENT, CALL LIGHT IN REACH
[2020-06-01] VITALS: BP 119/52
[2020-06-01 04:05] VITALS: BP 106/56
[2020-06-01 05:45] LABS: BASOPHILS 0.1 % (0-2); EOSINOPHILS 0.1 % (0-7); HEMATOCRIT 32.3 % (36.0-48.0); HEMOGLOBIN 10.5 g/dL (12-16); IMMATURE GRANULOCYTES 0.2 % (0-5); LYMPHOCYTE ABS# 1.05 10x3/uL (1.18-3.74); LYMPHOCYTES 8.2 % (15-50); MCHC 32.5 g/dL (31.0-37.0); MCV 86.1 fL (80.0-100.0); MEAN PLATELET VOLUME 9.5 fL (7.4-10.4); NEUTROPHIL ABS# 10.63 10x3/uL (1.56-6.13); NEUTROPHILS 83.4 % (40-80); PLATELET COUNT 243 10x3/uL (130-400); RBC 3.75 10x6/uL (4.00-5.40); RDW 14.5 % (11.5-14.5); WBC 12.8 10x3/uL (4.8-10.8)
[2020-06-01 06:25] LABS: ALBUMIN 2.9 g/dL (3.4-5.0); ALKALINE PHOSPHATASE 75 U/L (30-120); ALT (SGPT) 25 U/L (10-68); BILIRUBIN - TOTAL 0.28 mg/dL (0.2-1.3); CALC OSMOLALITY 271 mosm/kg (275-300); CALCIUM 8.1 mg/dL (8.5-10.1); CARBON DIOXIDE 25.8 mmol/L (21.0-32.0); CHLORIDE - SERUM 98 mmol/L (98-107); CREATININE - SERUM 0.7 mg/dL (0.6-1.3); GLUCOSE 183 mg/dL (74-106); MAGNESIUM - SERUM 1.8 mg/dL (1.8-2.4); PHOSPHOROUS 2.8 mg/dL (2.5-4.9); POTASSIUM - SERUM 4.4 mmol/L (3.5-5.1); PROTEIN - SERUM 6.7 g/dL (6.4-8.2); SODIUM 132 mmol/L (136-145); UREA NITROGEN 17 mg/dL (7-18); eGFR NON AFRICAN AMERICAN 87 mL/min (90-120)
[2020-06-01 07:25] VITALS: BP 122/34
--- NOTE | 2020-06-01 08:31 | NUR ---
C/O SOME NAUSEA. GIVEN 4MG ZOFRAN PO FOR SAME. ALSO C/O PAIN TO LEFT KNEE LEVEL 8.GIVEN ULTRAM PO FOR SAME WILL MONITOR. ATE ONLY A FEW BITES OF BREAKFAST.
--- NOTE | 2020-06-01 09:19 | NUR ---
JHONATAN explained, signed, given, copy placed in MR
--- NOTE | 2020-06-01 09:30 | NUR ---
REPORTS SOME RELEIF WITH USE OF ULTRAM. NO C/O NAUSEA AT THIS TIME.
--- NOTE | 2020-06-01 11:00 | NUR ---
SITTING UP IN CHAIR AT BEDSIDE. DENIES NEEDS.
[2020-06-01 11:57] VITALS: BP 127/60
--- NOTE | 2020-06-01 13:45 | NUR ---
UP TO BSC WITH ONE PERSON MIN ASSIST. VOIDED 350CC CLEAR YELLOW URINE. SKIN CARE PER STAFF. REPOSITIONED IN CHAIR FOR COMFORT.
--- NOTE | 2020-06-01 16:15 | NUR ---
REQUESTED AND GIVEN 4MG DILAUDID PO FOR C/O LEFT KNEE PAIN LEVEL 8. WILL MONITOR.
[2020-06-01 16:19] VITALS: BP 113/44
--- NOTE | 2020-06-01 16:30 | NUR ---
REQUESTED AND GIVEN 4MG DILAUDID PO FOR C/O LEFT KNEE PAIN LEVEL 7. WILL MONITOR. VISITOR AT BEDSIDE.
--- NOTE | 2020-06-01 18:21 | NUR ---
ATE ALL OF SUPPER. REPORTS PAIN MUCH IMPROVED WITH USE OF DILAUDID PO. DENIES NEEDS. NO CHANGES NOTED.
[2020-06-01 19:52] VITALS: BP 133/59
--- NOTE | 2020-06-01 20:00 | NUR ---
ALERT ASSISTED UP TO BATHROOM, DENIES DIZZINESS OR WEAKNESS, BACK TO BED WITHOUT DIFFICULTY, SEE SHIFT ASSESSMENT, CALL LIGHT IN REACH
--- NOTE | 2020-06-02 02:37 | NUR ---
PT FIELD ENUMERATOR LIGHT, C/O KNEE PAIN, ADM PAIN MED PER MD ORDERS, SEE EMAR, PT DENIES FURTHER NEEDS, FALL PRECAUTIONS IN PLACE
[2020-06-02 04:30] VITALS: BP 132/57
[2020-06-02 06:32] LABS: BASOPHILS 0.1 % (0-2); EOSINOPHILS 0.1 % (0-7); HEMATOCRIT 31.7 % (36.0-48.0); HEMOGLOBIN 10.6 g/dL (12-16); IMMATURE GRANULOCYTES 0.4 % (0-5); LYMPHOCYTE ABS# 1.49 10x3/uL (1.18-3.74); LYMPHOCYTES 15.9 % (15-50); MCH 28.4 pg (26.0-34.0); MCHC 33.4 g/dL (31.0-37.0); MEAN PLATELET VOLUME 9.6 fL (7.4-10.4); MONOCYTES 11.5 % (2-11); NEUTROPHIL ABS# 6.73 10x3/uL (1.56-6.13); PLATELET COUNT 219 10x3/uL (130-400); RBC 3.73 10x6/uL (4.00-5.40); RDW 14.6 % (11.5-14.5)
[2020-06-02 06:39] LABS: WBC 9.4 10x3/uL (4.8-10.8)
[2020-06-02 06:59] LABS: ALBUMIN 2.8 g/dL (3.4-5.0); ALKALINE PHOSPHATASE 74 U/L (30-120); ALT (SGPT) 22 U/L (10-68); BILIRUBIN - TOTAL 0.46 mg/dL (0.2-1.3); CALC OSMOLALITY 266 mosm/kg (275-300); CALCIUM 8.5 mg/dL (8.5-10.1); CARBON DIOXIDE 28.8 mmol/L (21.0-32.0); CHLORIDE - SERUM 96 mmol/L (98-107); CREATININE - SERUM 0.6 mg/dL (0.6-1.3); GLUCOSE 182 mg/dL (74-106); PHOSPHOROUS 2.4 mg/dL (2.5-4.9); PROTEIN - SERUM 6.6 g/dL (6.4-8.2); SODIUM 131 mmol/L (136-145); UREA NITROGEN 10 mg/dL (7-18); eGFR NON AFRICAN AMERICAN > 90 mL/min (90-120)
--- NOTE | 2020-06-02 07:30 | NUR ---
AWAKE AND ALERT. ORIENTED X3. LUNGS ARE CLEAR BILATERALLY, NO COUGH NOTED. SKIN IS INTACT WTIHOUT REDNESS EXCEPT INCISION TO LEFT KNEE WHICH HAS A DRY INTACT DRESSING IN PLACE. SL TO RIGHT HAND IS PATENT WITHOUT REDNESS AT INSERTION SITE. DENIES NEEDS. REQUESTED AND GIVEN 4MG HYDROMOPHONE PO FOR C/O LEFT KNEE PAIN LEVEL 8. WILL MONITOR.
[2020-06-02 07:43] VITALS: BP 142/64
--- NOTE | 2020-06-02 09:00 | NUR ---
ATE MOST OF BREAKFAST. TOOK AM MEDS WITHOUT DIFFICULTY. REPORTS PAIN IMPROVED WITH DILAUDID.
--- NOTE | 2020-06-02 09:36 | NUR ---
REHAB PRESCREENING Rehab referral received and chart reviewed. This patients insurance requires prior authorization. OT evaluation is pending. Rehab will submit auth when eval is completed. Thank you for this referral! Tanvi Freeman, BIG DATA DEVELOPER Rehab PD
[2020-06-02 12:10] VITALS: BP 143/60
--- NOTE | 2020-06-02 16:30 | NUR ---
UP TO BR WITH RW MIN ASSIST OF ONE. VOIDED WITHOUT DIFFICULTY. 2 SMALL FLUID FILLED BLISTERS FOUND ON BACK. PAINTED WITH BETADINE. WILL MONITOR.
[2020-06-02 17:52] VITALS: BP 157/68
--- NOTE | 2020-06-02 18:10 | NUR ---
REQUESTED AND GIVEN 4MG DILAUDID PO FOR C/O LEFT KNEE PAIN LEVEL 5. WILL MONITOR. ON CPM AT THIS TIME.
[2020-06-02 20:09] VITALS: BP 131/55
--- NOTE | 2020-06-02 20:54 | NUR ---
PT LAYING IN BED IN SUPINE POSTION. PT AAOX4. PATIENT REPORTS GOOD PAIN CONTROL TODAY. PT CPM PMACHINE REMOVED AT 8050 AND PT ASSISTED TO BEDSIDE COMMODE. PT UOP DOCUMENTED AT 400ML. PT GIVEN ORDERED MEDICATION AND ENCOURAGED TO USE INCENTIVE SPIROMETER. PT LEFT KNEE HAS DENICE WRAP AND IS CLEAN AND DRY. NASRIN HOSE ON BLE. PT ENCOURAGED TO INCREASE ORAL INTAKE OF FLUIDS, TURN, COUGH, AND DEEP BREATHE. VITALS WNL. WILL REASSESS PAIN WITH NEXT SET OF VITALS. PT VERBALIZED UNDERSTANDING OF MEDICATION, FALL PREVENTION, AND PAIN CONTROL.
[2020-06-03 04:15] VITALS: BP 142/89
--- NOTE | 2020-06-03 05:38 | NUR ---
CPM APPLIED AT 0445 TO LEFT KNEE. PT RESTING COMFORTABLY.
[2020-06-03 06:08] LABS: BASOPHILS 0.1 % (0-2); EOSINOPHILS 0.3 % (0-7); HEMATOCRIT 31.8 % (36.0-48.0); HEMOGLOBIN 10.6 g/dL (12-16); IMMATURE GRANULOCYTES 0.2 % (0-5); LYMPHOCYTE ABS# 1.51 10x3/uL (1.18-3.74); LYMPHOCYTES 16.1 % (15-50); MCH 28.4 pg (26.0-34.0); MCHC 33.3 g/dL (31.0-37.0); MCV 85.3 fL (80.0-100.0); MEAN PLATELET VOLUME 9.7 fL (7.4-10.4); MONOCYTES 9.6 % (2-11); NEUTROPHIL ABS# 6.89 10x3/uL (1.56-6.13); NEUTROPHILS 73.7 % (40-80); PLATELET COUNT 240 10x3/uL (130-400); RBC 3.73 10x6/uL (4.00-5.40); RDW 14.5 % (11.5-14.5); WBC 9.4 10x3/uL (4.8-10.8)
[2020-06-03 06:41] LABS: ALBUMIN 2.7 g/dL (3.4-5.0); ALKALINE PHOSPHATASE 77 U/L (30-120); ALT (SGPT) 23 U/L (10-68); BILIRUBIN - TOTAL 0.49 mg/dL (0.2-1.3); CALC OSMOLALITY 267 mosm/kg (275-300); CALCIUM 8.7 mg/dL (8.5-10.1); CARBON DIOXIDE 29.4 mmol/L (21.0-32.0); CHLORIDE - SERUM 97 mmol/L (98-107); CREATININE - SERUM 0.7 mg/dL (0.6-1.3); GLUCOSE 171 mg/dL (74-106); MAGNESIUM - SERUM 1.9 mg/dL (1.8-2.4); PHOSPHOROUS 2.5 mg/dL (2.5-4.9); POTASSIUM - SERUM 3.5 mmol/L (3.5-5.1); SODIUM 132 mmol/L (136-145); UREA NITROGEN 9 mg/dL (7-18); eGFR NON AFRICAN AMERICAN 87 mL/min (90-120)
[2020-06-03 07:27] VITALS: BP 145/57
--- NOTE | 2020-06-03 07:50 | NUR ---
PT SITTING UP IN BED WITH CPM TO LEFT LOWER EXTREMITY. NO ACUTE DISTRESS NOTED. CPM REMOVED AT THIS TIME. PT REPORTS PAIN 4/10 AT THIS TIME, DENIES NEED FOR PAIN MEDICATION. EDUCATED PT REGARDING NOTIFYING STAFF REGARDING PAIN BEFORE BECOMING TOO INTENSE. PT VOICES UNDERSTANDING. SALINE LOC TO RIGHT HAND. SITE WITHOUT REDNESS OR EDEMA. DRESSING TO LEFT LOWER EXTREMITY C/D/I. NASRIN HOSE IN PLACE. PULSES PALPABLE. PT DENIES FURTHER NEEDS AT THIS TIME. CL WITHIN REACH. ENCOURAGED TO CALL WITH NEEDS. CONTINEU POC
--- NOTE | 2020-06-03 09:42 | NUR ---
PT AT BEDSIDE FOR PHYSICAL THERAPY.
[2020-06-03 11:00] VITALS: BP 106/50
[2020-06-03] MEDS ORDERED: ELIQUIS2.5 MG PO (12:07)
[2020-06-03] MEDS ORDERED: DILAUDID4 MG PO (12:08)
--- NOTE | 2020-06-03 15:23 | NUR ---
OT NOTE: PT DOING BETTER. PT WAS SEEN AMBULATING IN HALLWAY WITH P.T. WITH WALKER AND MIN/CGA. PT ABLE TO PERFORM TRANSERS FROM STANDING TO CHAIR WITH MIN ASSIST; TOILET TRANSFERS (WITH USE OF BS COMMODE) WITH MIN ASSIST. SIMPLE GROOMING TASKS, FEEDING, AND UE DRESSING WITH SET UP; ASSIST WITH LE DRESSING LISA BILL, OTR/L [phone]
--- NOTE | 2020-06-05 20:09 | MORECARE ---
CASE MANAGEMENT DISCHARGE SUMMARY PATIENT: GARRET MACARIO UNIT: [id number] ADM DATE: 06/01/20 AGE: 69 : 48 SEX: F ROOM/BED: D.2110 AUTHOR: ZORA,DOC PHYSICIAN: REFERRING PHYSICIAN: KITTY LANG DO DATE OF SERVICE: 06/05/20 Case Management Discharge Planning Summary DCP REVIEW SUMMARY ANTICIPATED D/C DATE: EXPECTED LOS : CASE STATUS: DCP Initiated INITIAL REVIEW: 05/31/2020 INITIAL REVIEWER: Marilee Lagos FINAL DISCHARGE DISPOSITION: 62 : Discharged/Trans to Rehab Facility Including Distinct Units of a Hospital FINAL REVIEWER: Marilee Lagos FINAL REVIEW DATE: 06/03/2020 DCP Focus Questions & Answers - Added on: QUESTION: ANSWER : PATIENT: GARRET MACARIO ENCOUNTER: [id number] MEDICAL RECORD#: [id number] ADMISSION DATE: 06/01/2020 DISCHARGE DATE: 06/03/2020 ATTENDING MD: KITTY OHARA : AGE: 69 MARITAL STATUS: D DC PLAN ID: [id number] FACILITY: [facility] PRINTED ON: 06/05/20 20:09 CT All edits/amendments must be made on the electronic document DICTATION DATE: 06/05/202008 CENTERLESS GRINDER: SANTOSH 06/05/202008 RPT#: [id number] DC DATE:06/03/20 STATUS: DIS IN [facility] [address] [place] [address] END OF REPORT
--- NOTE | 2020-06-05 20:20 | MORECARE ---
CASE MANAGEMENT DISCHARGE SUMMARY PATIENT: GARRET MACARIO UNIT: [id number] ADM DATE: 06/01/20 AGE: 69 : 48 SEX: F ROOM/BED: D.2110 AUTHOR: ZORA,DOC PHYSICIAN: REFERRING PHYSICIAN: KITTY LANG DO DATE OF SERVICE: 06/05/20 Case Management Discharge Planning Summary COMMENTS ENTERED DATE: 06/05/20 20:16 CT COMMENT TYPE: Discharge Planning REVIEWER: Marilee Lagos LATE ENTRY 06/03/20 CM spoke with patient to complete initial dc planning assessment. CM educated patient on the CM role and verbal consent given by patient to complete assessment. Patient lives at home alone. Patient is independent. At discharge patient plans to return home and feels this is a safe discharge. Patient states that her daughter and grandson are going to come stay with when she discharges. Patient states that she would like Inpatient Rehab if insurance will approve. ADRIANO signed for Inpt Rehab [facility] .CM discussed availability of home health, rehab services, and medical equipment. Patient will have family to transport home. Patient denied known discharge needs at this time. D/C IMM signed CM will continue to follow and will assist as needed with dc plans/needs. DCP REVIEW SUMMARY ANTICIPATED D/C DATE: EXPECTED LOS : CASE STATUS: DCP Initiated INITIAL REVIEW: 05/31/2020 INITIAL REVIEWER: Marilee Lagos FINAL DISCHARGE DISPOSITION: 62 : Discharged/Trans to IP Rehab Facility Including Distinct Units of a Hospital FINAL REVIEWER: Marilee Lagos FINAL REVIEW DATE: 06/03/2020 DCP Focus Questions & Answers DCP REV -DCP Review Added on: 06/05/20 8:09 pm QUESTION: ANSWER DCP Screen Walking limitation: Patient stated self rated walking limitation present? : Yes Age: : 63 - 77 Prior living environment: : Lives Alone DCP Evaluation Patient's ability to cope with chronic illness : d. No chronic illness Mental health screen: : No mental health history Would patient like to participate in any Care Coordination programs (if applicable): : Not applicable Patient gives permission to discuss discharge plans with: (name, relationship and number) : Ceci Mercado - daughter - [phone] Physical Status: : Independent with ADL's Baseline cognitive status: : *Oriented to person, place, situation, time and present Living Arrangements: : Home Alone with Support Pharmacy name(s): : [address] Does Patient have transportation to get home and to follow-up medical appointments when discharged from the hospital? : Yes Does the patient have electricity at home? : Yes Does the patient have running water in their house? : No Equipment in use: : Bedside Commode Equipment in use: : Walker - Rolling Other Equipment comments: : CPM, ICEPACK Patient's current cognitive status: : *Oriented to person, place, situation, time and present Functional screen assessment: : New onset in difficulty in gait, balance, or transfer difficulties Patient with capacity for self-care or can be cared for in same environment as prior to hospitalization? : No Does the patient have the ability to pay for or attain post discharge needs / services? : Yes Is there a likelihood that the patient will require additional services to return to the preadmission environment? : N/A DCP Re-evaluation Would patient like to participate in any Care Coordination programs (if applicable): : Not applicable PATIENT: GARRET MACARIO ENCOUNTER: [id number] MEDICAL RECORD#: [id number] ADMISSION DATE: 06/01/2020 DISCHARGE DATE: 06/03/2020 ATTENDING MD: KITTY OHARA : [id number] AGE: 69 MARITAL STATUS: D DC PLAN ID: [id number] FACILITY: [facility] PRINTED ON: 06/05/20 20:20 CT All edits/amendments must be made on the electronic document DICTATION DATE: 06/05/202019 ZIPPER SETTER CHAINSTITCH: SANTOSH 06/05/202019 RPT#: [id number] DC DATE:06/03/20 STATUS: DIS IN [facility] [address] [place] [address] END OF REPORT
--- NOTE | 2020-06-07 08:06 | MORECARE ---
CASE MANAGEMENT DISCHARGE SUMMARY PATIENT: GARRET MACARIO UNIT: [id number] ADM DATE: 06/01/20 AGE: 69 : 48 SEX: F ROOM/BED: D.2110 AUTHOR: ZORA,DOC PHYSICIAN: REFERRING PHYSICIAN: KITTY LANG DO DATE OF SERVICE: 06/07/20 Case Management Discharge Planning Summary COMMENTS ENTERED DATE: 06/05/20 20:16 CT COMMENT TYPE: Discharge Planning REVIEWER: Marilee Lagos LATE ENTRY 06/03/20 CM spoke with patient to complete initial dc planning assessment. CM educated patient on the CM role and verbal consent given by patient to complete assessment. Patient lives at home alone. Patient is independent. At discharge patient plans to return home and feels this is a safe discharge. Patient states that her daughter and grandson are going to come stay with when she discharges. Patient states that she would like Inpatient Rehab if insurance will approve. ADRIANO signed for Inpt Rehab [facility] .CM discussed availability of home health, rehab services, and medical equipment. Patient will have family to transport home. Patient denied known discharge needs at this time. D/C IMM signed CM will continue to follow and will assist as needed with dc plans/needs. DCP REVIEW SUMMARY ANTICIPATED D/C DATE: EXPECTED LOS : CASE STATUS: DCP Initiated INITIAL REVIEW: 05/31/2020 INITIAL REVIEWER: Marilee Lagos FINAL DISCHARGE DISPOSITION: 62 : Discharged/Trans to IP Rehab Facility Including Distinct Units of a Hospital FINAL REVIEWER: Marilee Lagos FINAL REVIEW DATE: 06/03/2020 DCP Focus Questions & Answers DCP REV -DCP Review Added on: 06/05/20 8:09 pm QUESTION: ANSWER DCP Screen Walking limitation: Patient stated self rated walking limitation present? : Yes Age: : 65 - 77 Prior living environment: : Lives Alone DCP Evaluation Patient's ability to cope with chronic illness : d. No chronic illness Mental health screen: : No mental health history Would patient like to participate in any Care Coordination programs (if applicable): : Not applicable Patient gives permission to discuss discharge plans with: (name, relationship and number) : Ceci Mercado - daughter - [phone] Physical Status: : Independent with ADL's Baseline cognitive status: : *Oriented to person, place, situation, time and present Living Arrangements: : Home Alone with Support Pharmacy name(s): : [facility] [address] Does Patient have transportation to get home and to follow-up medical appointments when discharged from the hospital? : Yes Does the patient have electricity at home? : Yes Does the patient have running water in their house? : No Equipment in use: : Bedside Commode Equipment in use: : Walker - Rolling Other Equipment comments: : CPM, ICEPACK Patient's current cognitive status: : *Oriented to person, place, situation, time and present Functional screen assessment: : New onset in difficulty in gait, balance, or transfer difficulties Patient with capacity for self-care or can be cared for in same environment as prior to hospitalization? : No Does the patient have the ability to pay for or attain post discharge needs / services? : Yes Is there a likelihood that the patient will require additional services to return to the preadmission environment? : N/A DCP Re-evaluation Would patient like to participate in any Care Coordination programs (if applicable): : Not applicable PATIENT: GARRET MACARIO ENCOUNTER: [id number] MEDICAL RECORD#: [id number] ADMISSION DATE: 06/01/2020 DISCHARGE DATE: 06/03/2020 ATTENDING MD: KITTY OHARA : AGE: 69 MARITAL STATUS: D DC PLAN ID: [id number] FACILITY: [facility] PRINTED ON: 06/07/20 8:06 CT All edits/amendments must be made on the electronic document DICTATION DATE: 06/07/20805 CLIENT TECHNOLOGIES ANALYST: SANTOSH 06/07/20805 RPT#: [id number] DC DATE:06/03/20 STATUS: DIS IN [facility] [address] [place] [address] END OF REPORT
== END 2020-06-03 15:28 | DRG 470 ==
LOC: D.SDCHOLD 05-31 07:46 → D.M3 05-31 07:46 → D.OPS 05-31 08:00 → EDSTATUS 05-31 08:00 → D.MS 05-31 08:00 → OBSVTIME 05-31 08:59 → D.M3 05-31 09:16 → D.MS 05-31 09:30 → D.M3 06-01 12:25 → D.M2 06-01 12:25 → D.SDCHOLD 06-03 13:26 → D.M2 06-03 13:36
PROVIDERS: Emergency Medicine; ADMIT Orthopaedic Surgery; ATTEND Orthopaedic Surgery
PROC: 0SRD0J9 Replacement of Left Knee Joint with Synthetic Substitute, Cemented, Open Approach (ICD-10-PCS; principal; 2020-05-31 09:30)
DX: M17.12 Unilateral primary osteoarthritis, left knee (principal); Z68.42 Body mass index [BMI] 45.0-49.9, adult; I10 Essential (primary) hypertension; E78.5 Hyperlipidemia, unspecified; F32.9 Major depressive disorder, single episode, unspecified; K21.9 Gastro-esophageal reflux disease without esophagitis; E66.01 Morbid (severe) obesity due to excess calories

== ENCOUNTER 2020-06-03 14:48 | Inpatient (IN) | payer MEDICARE ==
[~2020-06-03] VITALS: Ht 160 cm; Wt 122.5 kg
[~2020-06-03 14:48] MED LIST changes: +COLCRYS0.6 MG PO; +LIPITOR10 MG PO; +PEPCID AC20 MG PO; +ZYLOPRIM100 MG PO
--- NOTE | 2020-06-03 15:56 | NUR ---
PATIENT ADMITTS TO REHAB FROM ACUTE FLOOR. DR. GARCES IS HER PCP. DISCHARGE PLANS ARE TO RETURN TO HER HOME. WILL CONTINUE TO FOLLOW WITH PATIENT.
[2020-06-03 20:03] VITALS: BP 133/58
--- NOTE | 2020-06-03 20:26 | NUR ---
AWAKE AND ALERT. RESTING IN BED WITH RESPIRATIONS UNLABORED. LEFT KNEE DRESSING DRY AND INTACT. NOTED BLISTERS AT BASE OF SPINE. SHE STATES IT WAS A TAPE ALLERY WHEN SHE GOT AN EPIDURAL. WILL MONITOR. MEDICATED FOR C/O KNEE PAIN. SEE MAR. CALL LIGHT IN REACH.
[2020-06-04 00:45] VITALS: BP 133/58; BMI 47.9
--- NOTE | 2020-06-04 05:29 | NUR ---
QUIET HOURS. NO ACUTE CHANGES IN CONDITION THIS SHIFT. RESTING IN BED WITH NO DISTRESS NOTED.
[2020-06-04 05:32] LABS: BASOPHILS 0.3 % (0-2); EOSINOPHILS 1.5 % (0-7); HEMOGLOBIN 10.5 g/dL (12-16); IMMATURE GRANULOCYTES 0.3 % (0-5); LYMPHOCYTE ABS# 1.46 10x3/uL (1.18-3.74); LYMPHOCYTES 19.4 % (15-50); MCH 28.2 pg (26.0-34.0); MCHC 32.8 g/dL (31.0-37.0); MEAN PLATELET VOLUME 9.4 fL (7.4-10.4); MONOCYTES 10.8 % (2-11); NEUTROPHILS 67.7 % (40-80); PLATELET COUNT 251 10x3/uL (130-400); RBC 3.72 10x6/uL (4.00-5.40); RDW 14.4 % (11.5-14.5); WBC 7.5 10x3/uL (4.8-10.8)
[2020-06-04 05:44] LABS: CALC OSMOLALITY 271 mosm/kg (275-300); CARBON DIOXIDE 32.3 mmol/L (21.0-32.0); CHLORIDE - SERUM 99 mmol/L (98-107); CREATININE - SERUM 0.6 mg/dL (0.6-1.3); GLUCOSE 167 mg/dL (74-106); POTASSIUM - SERUM 3.9 mmol/L (3.5-5.1); SODIUM 134 mmol/L (136-145); eGFR NON AFRICAN AMERICAN > 90 mL/min (90-120)
[2020-06-04 05:45] LABS: UREA NITROGEN 13 mg/dL (7-18)
--- NOTE | 2020-06-04 08:00 | NUR ---
SHIFT ASSMT COMPLETED.
[2020-06-04 08:18] VITALS: BP 146/52
[2020-06-04 09:29] VITALS: Ht 160 cm; Wt 122.5 kg
[2020-06-04 19:00] VITALS: BP 108/51
--- NOTE | 2020-06-04 19:21 | NUR ---
AWAKE AND ALERT. RESTING IN BED WITH RESPIRATIONS UNLABORED. LEFT KNEE DRESSING INTACT. NOTED BLISTERS ON BACK WITH ONE BURST. WILL MONITOR. NO ACUTE DISTRESS NOTED. CALL LIGHT IN REACH.
--- NOTE | 2020-06-05 08:00 | NUR ---
SHIFT ASSMT COMPLETED.
[2020-06-05 08:48] VITALS: BP 143/50
--- NOTE | 2020-06-05 16:00 | NUR ---
CAITLYN CPM.UP OOB.
[2020-06-05 19:00] VITALS: BP 140/91
--- NOTE | 2020-06-05 19:29 | NUR ---
AWAKE AND ALERT. RESPIRATIONS UNLABORED. SITTING IN WHEELCHAIR. NO DISTRESS NOTED. CALL LIGHT IN REACH.
--- NOTE | 2020-06-06 01:33 | NUR ---
RESTING IN BED WITH RESPIRATIONS UNLABORED. NO DISTRESS NOTED.
--- NOTE | 2020-06-06 05:07 | NUR ---
QUIET HOURS. NO ACUTE CHANGES IN CONDITION THIS SHIFT. RESTING IN BED WITH NO DISTRESS NOTED.
[2020-06-06 07:29] LABS: BASOPHILS 0.3 % (0-2); EOSINOPHILS 3.3 % (0-7); HEMATOCRIT 32.1 % (36.0-48.0); HEMOGLOBIN 10.4 g/dL (12-16); IMMATURE GRANULOCYTES 0.3 % (0-5); LYMPHOCYTE ABS# 1.71 10x3/uL (1.18-3.74); LYMPHOCYTES 24.4 % (15-50); MCH 28.1 pg (26.0-34.0); MCHC 32.4 g/dL (31.0-37.0); MCV 86.8 fL (80.0-100.0); MEAN PLATELET VOLUME 9.2 fL (7.4-10.4); MONOCYTES 9.8 % (2-11); NEUTROPHIL ABS# 4.34 10x3/uL (1.56-6.13); NEUTROPHILS 61.9 % (40-80); RDW 14.6 % (11.5-14.5)
--- NOTE | 2020-06-06 07:33 | NUR ---
ALERT AND ORIENTED. ASSESSMENT COMPLETE. DENIES NEEDS. BED LOW. CALL HOGUE AND PERSONAL ITEMS IN REACH. WILL CONTINUE TO MONITOR.
[2020-06-06 07:35] LABS: PLATELET COUNT 319 10x3/uL (130-400)
[2020-06-06 07:36] LABS: CALC OSMOLALITY 272 mosm/kg (275-300); CALCIUM 9.1 mg/dL (8.5-10.1); CARBON DIOXIDE 28.5 mmol/L (21.0-32.0); CHLORIDE - SERUM 101 mmol/L (98-107); CREATININE - SERUM 0.6 mg/dL (0.6-1.3); GLUCOSE 161 mg/dL (74-106); SODIUM 135 mmol/L (136-145); UREA NITROGEN 13 mg/dL (7-18); eGFR NON AFRICAN AMERICAN > 90 mL/min (90-120)
[2020-06-06 07:47] VITALS: BP 139/73
--- NOTE | 2020-06-06 10:47 | NUR ---
EGG CRATE PLACED ON PATIENT'S MATTRESS PER REQUEST. DENIES FURTHER NEEDS.
--- NOTE | 2020-06-06 17:52 | NUR ---
RESTING IN BED. DENIES NEEDS. WILL CONTINUE TO MONITOR.
--- NOTE | 2020-06-06 18:55 | NUR ---
BEDSIDE REPORT COMPLETE. RECEIVED PT SITTING UP IN W/C. ALERT AND ORIENTED X4. DENIES ANY NEEDS OR PAIN. LEFT KNEE DRESSING C/D/I, SCHEDULED TO BE CHANGED 06/03. NO IV OR OXYGEN NOTED. CALL LIGHT AND WATER WITHIN REACH. FALL PRECAUTIONS IN PLACE. CPOC
[2020-06-06 19:09] VITALS: BP 129/66
--- NOTE | 2020-06-07 00:34 | NUR ---
PT LYING IN BED EYES CLOSED RESTING. RR EVEN AND UNLABORED. CALL LIGHT WITHIN REACH.
--- NOTE | 2020-06-07 02:45 | NUR ---
PT LYING IN BED SUPINE EYES CLOSED RESTING. RR EVEN AND UNLABORED. CALL LIGHT WITHIN REACH
--- NOTE | 2020-06-07 05:17 | NUR ---
PT LYING IN BED AWAKE. DENIES ANY NEEDS. NO ACUTE CHANGES IN CONDITION NOTED. CALL LIGHT WITHIN REACH. FALL PRECAUTIONS IN PLACE. CPOC
[2020-06-07 06:44] LABS: BASOPHILS 0.3 % (0-2); EOSINOPHILS 3.7 % (0-7); HEMATOCRIT 30.5 % (36.0-48.0); IMMATURE GRANULOCYTES 0.1 % (0-5); LYMPHOCYTE ABS# 2.09 10x3/uL (1.18-3.74); LYMPHOCYTES 27.9 % (15-50); MCH 28.2 pg (26.0-34.0); MCHC 32.8 g/dL (31.0-37.0); MCV 85.9 fL (80.0-100.0); MEAN PLATELET VOLUME 8.9 fL (7.4-10.4); MONOCYTES 8.8 % (2-11); NEUTROPHIL ABS# 4.42 10x3/uL (1.56-6.13); NEUTROPHILS 59.2 % (40-80); PLATELET COUNT 293 10x3/uL (130-400); RBC 3.55 10x6/uL (4.00-5.40); RDW 14.5 % (11.5-14.5); WBC 7.5 10x3/uL (4.8-10.8)
[2020-06-07 07:55] VITALS: BP 141/56
--- NOTE | 2020-06-07 12:20 | NUR ---
SITTING UP IN WC EATING LUNCH. DSG TO LEFT KNEE INTACT. DENIES INCREASED PAIN. CALL LIGHT IN REACH
--- NOTE | 2020-06-07 14:22 | NUR ---
DSG CHANGE DONE TO LEFT KNEE. NO S/S INFECTION NOTED. ZIP TIES NOTED TO CLOSE INCISION.
--- NOTE | 2020-06-07 18:50 | NUR ---
BEDSIDE REPORT COMPLETE. RECEIVED PT SITTING UP IN BED, ALERT AND ORIENTED X4. DENIES ANY NEEDS OR PAIN. NO DISTRESS NOTED. NO IV OR OXYGEN. LEFT KNEE DRESSING CHANGED TODAY. LEFT KNEE +1 EDEMA AND SLIGHTLY WARM. NO REDNESS NOTED. CALL LIGHT AND WATER WITHIN REACH. FALL PRECAUTIONS IN PLACE. CPOC
[2020-06-07 20:00] VITALS: BP 141/52
--- NOTE | 2020-06-07 23:42 | NUR ---
PT LYING IN BED WATCHING TV. DENIES ANY NEEDS OR PAIN. NO DISTRESS NOTED. CALL LIGHT WITHIN REACH.
[2020-06-08 07:00] LABS: BASOPHILS 0.1 % (0-2); EOSINOPHILS 3.8 % (0-7); HEMATOCRIT 31.8 % (36.0-48.0); HEMOGLOBIN 10.3 g/dL (12-16); IMMATURE GRANULOCYTES 0.4 % (0-5); LYMPHOCYTE ABS# 1.75 10x3/uL (1.18-3.74); LYMPHOCYTES 22.3 % (15-50); MCHC 32.4 g/dL (31.0-37.0); MCV 86.4 fL (80.0-100.0); MONOCYTES 7.2 % (2-11); NEUTROPHIL ABS# 5.18 10x3/uL (1.56-6.13); NEUTROPHILS 66.2 % (40-80); PLATELET COUNT 325 10x3/uL (130-400); RBC 3.68 10x6/uL (4.00-5.40); RDW 14.8 % (11.5-14.5); WBC 7.8 10x3/uL (4.8-10.8)
[2020-06-08 07:18] LABS: CALC OSMOLALITY 279 mosm/kg (275-300); CALCIUM 8.8 mg/dL (8.5-10.1); CARBON DIOXIDE 28.1 mmol/L (21.0-32.0); CHLORIDE - SERUM 101 mmol/L (98-107); CREATININE - SERUM 0.7 mg/dL (0.6-1.3); GLUCOSE 156 mg/dL (74-106); POTASSIUM - SERUM 4.5 mmol/L (3.5-5.1); SODIUM 138 mmol/L (136-145); UREA NITROGEN 15 mg/dL (7-18); eGFR NON AFRICAN AMERICAN 87 mL/min (90-120)
[2020-06-08 07:41] VITALS: BP 119/42
--- NOTE | 2020-06-08 14:50 | NUR ---
CARE TEAM MEETING: PATIENT IS DOING WELL IN THERAPY AND WISHES TO DISCHARGE HOME ON 06/09/20. WILL CONTINUE TO FOLLOW WITH PATIENT AND WILL ASSIST WITH DISCHARGE NEEDS.
--- NOTE | 2020-06-08 15:19 | NUR ---
Nutrition Follow-up: Discussed in IP Rehab CM meeting today. Patient expected to discharge tomorrow. Diet: Regular PO intake: 75-100% x last 9 meals Last BM: 06/07/20 Wt: 270# (06/04/20) Meds noted: miralax, lasix, micro-k Labs noted: Glu 156(H) Recommend continue current diet. Will continue to honor food preferences. RD will follow-up within 7 days if still admitted.
--- NOTE | 2020-06-08 18:57 | NUR ---
BEDSIDE REPORT COMPLETE. PT SITTING UP IN BED, ALERT AND ORIENTED X4. DENIES ANY NEEDS OR PAIN. NO DISTRESS NOTED. LEFT KNEE DRESSING INTACT. CALL LIGHT AND WATER WITHIN REACH. FALL PRECAUTIONS IN PLACE. CPOC
[2020-06-08 21:35] VITALS: BP 140/50
--- NOTE | 2020-06-09 00:32 | RHP ---
PATIENT: GARRET MACARIO MEDICAL RECORD: [id number] ACCOUNT: [id number] LOCATION:[id number] : 46 ADMISSION DATE: 06/03/20 REHABILITATION HISTORY AND PHYSICAL EXAMINATION POST ADMISSION PHYSICIAN EXAMINATION ADMITTING DIAGNOSIS: Osteoarthritis of the left knee, status post total knee replacement. HISTORY OF PRESENT ILLNESS: The patient is admitted to inpatient rehab secondary osteoarthritis of the left knee with left knee arthroplasty. She is a 69-year-old female who arrived at the hospital for left total knee arthroplasty. She was admitted secondary to pain and osteoarthritis. She had a total knee replacement and she has done well. She is still having pain that has not been controlled completely. She is having to have pain medications adjustment. She is also taking Ultram and Dilaudid. She had some postop anemia that has not yet been low enough to transfuse and we will continue to monitor this. She also had some problems with her electrolytes, especially her sugar status post surgery. The patient resides at home alone and was independent with a cane for mobility. She is 2-person assist for sit to stand and bed to chair. She demonstrates decreased ability to walk with a normal paty and has an antalgic gait. She fatigues easily. She is going to require use of a rolling walker for transfers. She will definitely need inpatient rehab to get back to her prior level of functioning. COMORBIDITIES: Include anemia, decrease in mobility, decrease in physical functioning, depression, difficulty walking, fatigue, reflux, hypertension, osteoarthritis, obesity, abnormal postop pain. PAST MEDICAL HISTORY: Significant for osteoarthritis, hypertension, hyperlipidemia, depression, gastroesophageal reflux disease, gout. PAST SURGICAL HISTORY: Includes a right total knee and tubal ligation. ALLERGIES: CODEINE AND HYDROCODONE. CURRENT MEDICATIONS: Include lisinopril 40 mg daily, furosemide 40 mg daily, Prozac 10 mg daily, colchicine 0.6 mg daily, Norvasc 10 mg daily, allopurinol 100 mg daily, potassium 10 mEq b.i.d., Pepcid 20 mg b.i.d., atorvastatin 10 mg at bedtime, she is on Eliquis 2.5 mg b.i.d., Dilaudid 4 mg every 6 hours p.r.n., Tylenol 1000 mg every 8 hours as needed. HABITS: No current alcohol or tobacco use. FAMILY HISTORY: Noncontributory. SOCIAL HISTORY: The patient hopes to return back home and get back to her prior level of functioning. REVIEW OF SYSTEMS: GENERAL: Does complain of some weakness and fatigue. HEENT: She denies cold, cough, congestion. CARDIOVASCULAR: Denies any chest pain. OBJECTIVE: HISTORY AND PHYSICAL [id number] GARRET MACARIO VITAL SIGNS: Stable, afebrile. GENERAL: An elderly female in no acute distress upon exam. HEENT: Normocephalic and atraumatic. Mucosa moist. NECK: Supple with no lymphadenopathy. LUNGS: Clear in upper ortiz. No wheezing or rales. HEART: Regular rate and rhythm. No murmurs, rubs or gallops. ABDOMEN: Soft, benign, nondistended. Positive bowel sounds times 4. EXTREMITIES: Postoperative area looks pretty good. NEUROLOGIC: She does have some noted weakness. LABORATORY DATA: Her white count is 7.5, H&H is 10.5 and 32.0 and platelet count is 251. Sodium 134, potassium 3.9, BUN and creatinine of 13 and 0.6 and blood sugar is noted to be 167. ASSESSMENT: This is a 69-year-old female patient status post total knee replacement. The patient has potential to make improvement. We instituted the following multidisciplinary therapies including, not limited to physical, occupational, respiratory, speech, nutritional services, prosthetics and orthotics. Given her complex medical condition and risks for further medical complications, rehabilitation services cannot be provided at a low level of care such as longterm facility. PLAN: 1. Admit to [facility] for inpatient therapy to include the following disciplines; A. Physical therapy to improve gait, all transfer skills and bed mobility to a modified independent level. B. Occupational therapy to improve activities of daily living. C. Case management to help with discharge planning and placement options. D. Nutrition to assist with nutritional needs. E. Rehabilitation nursing to assist in monitoring the patient's underlying medical condition and to assist with any type of bowel or bladder management. 2. The patient's current medication and Medicare will be continued. 3. The patient will be placed on standard fall precautions. 4. We will manage her pain control closely, watch her H&H and my nurse practitioner will be seeing her on Saturday a.m. TRANSINT:[id number] Voice Confirmation ID: [id number] DOCUMENT ID: [id number] RADHA notes whether there has been none or any medical/functional change since admission: - No change since preadmission screen. RADHA attests patient continues to be appropriate for IRF: - Continues to be appropriate. HISTORY AND PHYSICAL [id number] GARRET MACARIO,KEYONNA MATIAS MD at 0032 CC: [id number] DICTATION DATE: 06/04/20 1106 RADIO INSTALLER AUTOMOBILE: 06/04/20 1132 ADM IN [place] [id number] [place] [address]
--- NOTE | 2020-06-09 01:48 | NUR ---
PT LYING IN BED ON LEFT SIDE EYES CLOSED RESTING. RR EVEN AND UNLABORED. CALL LIGHT WITHIN REACH
--- NOTE | 2020-06-09 04:23 | NUR ---
PT LYING IN BED ON LEFT SIDE AWAKE. DENIES ANY NEEDS OR PAIN. NO DISTRESS NOTED. CALL LIGHT WITHIN REACH
[2020-06-09 08:00] VITALS: BP 128/70
--- NOTE | 2020-06-09 08:00 | NUR ---
SHIFT ASSMT COMPLETED.PLAN TO DC HOME TODAY.DRSG LEFT KNEE INTACT.
--- NOTE | 2020-06-09 09:43 | NUR ---
PATIENT DISCHARGING TO HER HOME WITH FAMILY TODAY. [facility] WILL PROVIDE THEREAP[facility] AT HOME. NO NEW DME NEEDED AT THIS TIME. ADRIANO SIGNED, IMM SERVED AND EXPLAINED, ONE GIVEN TO PATIENT AND ONE FILED IN CHART. DR. GARCES 06/21/20 @ 9:15, DR. LANG 06/16/20 @ 10:40. NO COMPARE DATA REVIEWED PATIENT IS A CLIENT OF [facility]. DISCHARGE INSTRUCTIONS FAXED TO PCP, HOME HEALTH AND REVIEWED WITH PATIENT.
--- NOTE | 2020-06-09 12:00 | NUR ---
DISCHARGED TO HOME.MEDS REVIEWED.F/U APPTS GIVEN.DISCHARGED IN STABLE CONDITION.
--- NOTE | 2020-06-09 14:08 | NUR ---
DISCHARGE CLINICALS HAS BEEN FAXED TO [facility] AT , AUTH.#[id number]. WITH FAX CONFORMATION RECIEVED.
== END 2020-06-09 12:00 | disposition home health service (06) | DRG 560 ==
LOC: D.REHAB 14:48
PROVIDERS: ADMIT Emergency Medicine; ATTEND Emergency Medicine
DX: Z47.1 Aftercare following joint replacement surgery (principal); Z68.42 Body mass index [BMI] 45.0-49.9, adult; Z96.652 Presence of left artificial knee joint; M17.11 Unilateral primary osteoarthritis, right knee; D64.9 Anemia, unspecified; F32.9 Major depressive disorder, single episode, unspecified; R26.2 Difficulty in walking, not elsewhere classified; R53.83 Other fatigue; K21.9 Gastro-esophageal reflux disease without esophagitis; I10 Essential (primary) hypertension; M19.90 Unspecified osteoarthritis, unspecified site; E66.9 Obesity, unspecified; E78.5 Hyperlipidemia, unspecified; M10.9 Gout, unspecified

== ENCOUNTER → 2020-08-23 08:45 | Outpatient (CLI) | payer MEDICARE ==
[2020-06-04 09:29] VITALS: BMI 47.8
== END | disposition home or self-care (01) ==
LOC: D.MAMMO 08:45
PROVIDERS: ATTEND Family Medicine
DX: Z12.31 Encounter for screening mammogram for malignant neoplasm of breast (principal)